=== PATIENT | male | born 1965 | race Asian ===

== ENCOUNTER 2024-11-21 18:10 | Emergency (ER) | payer MEDICAID ==
[~2024-11-21] VITALS: Ht 180.3 cm; Wt 82.0 kg
--- NOTE | 2024-11-21 19:18 | DVH ---
CT HEAD WITHOUT CONTRAST INDICATION: Vertigo COMPARISON: None TECHNIQUE: CT of the head without intravenous contrast. RADIATION DOSE: CTDIvol: mGy, DLP: mGy*cm FINDINGS: There is no evidence of intracranial hemorrhage, infarct, extra-axial collection, mass effect, midli ne shift, herniation or hydrocephalus. The ventricles, sulci and cisterns are normal. The vasquez-white differentiation is normal. Visualized paranasal sinuses and mastoid air cells are clear. Soft tissues and osseous structures are unremarkable. IMPRESSION: No intracranial abnormality.
--- NOTE | 2024-11-21 19:25 | ED.PDOC ---
History of Present Illness HPI Comments 59 y/o M, with a history of AFIB, DM, HTN, resolved HBV infection, 2x OK, and PTCA, presents with spouse for c/o "vertigo" and bilateral ear "heaviness" sensation, today. Patient endorses on onset of symptoms at 0500, this morning. He reports dizziness being a "room-spinning" sensation that begins whenever he stands or walks. Patient admits to having symptoms before in the past. Prior to ED arrival, he also reports on taking a Meclizine, which improved his "room- spinning" sensation, moderately. He denies having any chest pain, tinnitus, cough, congestion, shortness of breath, headache, congestion, nausea, vomiting, speech or vision problems, or further associated symptoms or modifiers. Chief Complaint: Dizziness Time Seen by MD: 18:45 Primary Care Provider: CHET Reviewed Notes: Nurses Notes, Medications, Allergies Allergies: Coded Allergies: NO KNOWN ALLERGIES (Unverified , 06/04/16) Information Source: Patient Mode of Arrival: Ambulatory Severity: Moderate Timing: Hours Duration: Since onset Prehospital treatment: None Review of Systems: REVIEW OF SYSTEMS: No fever, no chills, or fatigue HEENT: Bilateral ear "heaviness" sensation. No sore throat, no earache, no chester estion, no neck pain. Cardiac: No chest pain. No palpitations. Lungs: No shortness of breath, no cough. GI: No nausea, no vomiting, no diarrhea, no constipation, no abdominal pain : No dysuria, frequency, or urgency. No hematuria. Musculoskeletal: No joint pain , no joint swelling, no extremity edema. Skin: No rash, no itching. Neuro: Dizziness. No headache, no weakness Vital Signs Vital Signs Date Time Temp Pulse Resp B/P (MAP) Pulse Ox O2 Delivery O2 Flow Rate FiO2 11/21/24 19:25 76 11/21/24 18:10 98.4 16 123/80 (94) 95 98.4 Physical Exam General: Awake, alert and oriented. No acute distress. Skin: Skin in warm, dry and intact. Appropriate color for ethnicity. HEENT: Nystagmus positive. The head is normocephalic and atraumatic. Conjunctivae are clear without exudates or hemorrhage. Sclera is non-icteric. Eyelids are normal in appearance without swelling or lesions. Oral mucosa is pink and moist Neck: The neck is supple with normal range of motion. No JVD. Cardiac: Heart rate and rhythm are normal. No murmurs, gallops, or rubs are auscultated. Respiratory: No signs of respiratory distress. Lung sounds are clear in all lobes bilaterally without rales, rhonchi, or wheezes. Abdominal: Abdomen is soft, non-tender without distention. Bowel sounds are present and normoactive in all four quadrants. Extremities: Upper and lower extremities are atraumatic in appearance without deformity or edema. Neurological: The patient is awake, alert and oriented to person, place, and time with normal speech. Speech is clear. There is no facial asymmetry. Psychiatric: Appropriate mood and affect. Good judgement and insight. Past Medical History PAST MEDICAL HISTORY: AFIB, DM, HTN, Liver (Hepatitis B, resolved), [place] (2x) Surgical History: PTCA Family History Family History: Unknown Social History Smoker: Non-Smoker Alcohol: Denies ETOH Use Drugs: Denies Drug Use Lives In: Home Was a procedure done? Was a procedure done?: No EKG EKG : Pulse Rate (adult): 76 [place]: Normal Cardiac Rhythm: NSR Block: None Hypertrophy: None ST: Old, Inf, Infarct Comments No STEMI Differential Dx Considerations may include: Differential diagnoses considered include but are not limited to vertigo, cardiac structural disease, arrhythmia, acute coronary syndrome, orthostasis, pulmonary embolism, dissection, seizure, basilar stroke, other. X-Ray, Labs, Meds, VS Vital Signs Date Time Temp Pulse Resp B/P (MAP) Pulse Ox O2 Delivery O2 Flow Rate FiO2 11/21/24 19:25 76 11/21/24 18:27 76 11/21/24 18:10 98.4 81 16 123/80 (94) 95 98.4 Lab Test 11/21/24 20:05 11/21/24 19:00 Range/Units White Blood Count 7.7 4.4-10.8 10^3/uL Red Blood Count 5.90 4.5-5.90 10^6/uL Hemoglobin 16.4 13.5-17.5 g/dL Hematocrit 48.9 41.0-53.0 % Mean Corpuscular Volume 82.8 80.0-100.0 fL Mean Corpuscular Hemoglobin 27.8 L 28.0-32.0 pg Mean Corpuscular Hemoglobin Concent 33.6 32.0-36.0 g/dL Red Cell Distribution Width 16.4 H 11.8-14.3 % Platelet Count 241 140-450 10^3/uL Mean Platelet Volume 7.9 6.9-10.8 fL Neutrophils (%) (Auto) 59.9 37.0-80.0 % Lymphocytes (%) (Auto) 29.0 10.0-50.0 % Monocytes (%) (Auto) 9.2 0.0-12.0 % Eosinophils (%) (Auto) 1.0 0.0-7.0 % Basophils (%) (Auto) 0.9 0.0-2.0 % Neutrophils # (Auto) 4.6 1.6-8.6 10 ^3/uL Lymphocytes # (Auto) 2.2 0.4-5.4 10 ^3/uL Monocytes # (Auto) 0.7 0-1.3 10 ^3/uL Eosinophils # (Auto) 0.1 0-0.8 10 ^3/uL Basophils # (Auto) 0.1 0-0.2 10 ^3/uL Nucleated Red Blood Cells 0.2 % Sodium Level 137 136-145 mmol/L Potassium Level 4.4 3.5-5.1 mmol/L Chloride Level 106 98-107 mmol/L Carbon Dioxide Level 18 L 20-31 mmol/L Anion Gap 13 5-15 Blood Urea Nitrogen 17 9-23 mg/dL Creatinine 0.92 0.700-1.30 mg/dL Glomerular Filtration Rate Calc 96 >90 mL/min BUN/Creatinine Ratio 18.5 10.0-20.0 Serum Glucose 174 H 74-106 mg/dL Calcium Level 9.8 8.7-10.4 mg/dL Magnesium Level 2.0 1.6-2.6 mg/dL Total Bilirubin 1.1 H 0.2-1.0 mg/dL Aspartate Amino Transferase (AST) 29 13-40 U/L Alanine Aminotransferase (ALT) 35 7-40 U/L Alkaline Phosphatase 79 46-116 U/L Troponin I High Sensitivity 6 </=54 ng/L Total Protein 7.5 5.7-8.2 g/dL Albumin 4.7 3.2-4.8 g/dL [facility] [address] [facility] [address] Ph: [phone] DIAGNOSTIC IMAGING Diagnostic Imaging Report : [id number] Signed PATIENT: ANALY OLIVEROS ACCT: [id number] UNIT: [id number] : 1965 LOC: ER ROOM / BED: / AGE / SEX: 59 / M ADM STATUS: REG ER SERVICE 1846 ORDERING PHYSICIAN: MACY HICKMAN MD PROCEDURE(s): HWOCT - HEAD WITHOUT CONTRAST REASON: Vertigo ORDER NUMBER(s): [id number], ACCESSION NUMBER(s): [id number] CT HEAD WITHOUT CONTRAST INDICATION: Vertigo COMPARISON: None TECHNIQUE: CT of the head without intravenous contrast. RADIATION DOSE: CTDIvol: mGy, DLP: mGy*cm FINDINGS: There is no evidence of intracranial hemorrhage, infarct, extra-axial collection, mass effect, midline shift, herniation or hydrocephalus. The munira tricles, sulci and cisterns are normal. The vasquez-white differentiation is normal. Visualized paranasal sinuses and mastoid air cells are clear. Soft tissues and osseous structures are unremarkable. IMPRESSION: No intracranial abnormality. ATED BY: FABIEN RAMIREZ MD DICTATED DATE/TIME: 11/21/241915 SIGNED BY: FABIEN RAMIREZ MD SIGNED DATE/TIME: 11/21/241915 CC: Time of 1ST Reevaluation: 19:15 Reevaluation 1ST: Unchanged Patient Education/Counseling: Diagnosis, Treatment Family Education/Counseling: Diagnosis, Treatment Departure 1 Departure Time of Disposition: 20:46 Impression: Primary Impression: Vertigo Disposition: 01 HOME / SELF CARE / HOMELESS Condition: Good Additional Instructions: ED DISCHARGE INSTRUCTIONS Instructions: Please read all instructions provided in this packet carefully. Although you have been discharged from the Emergency Department, this does not mean that you have a "clean bill of health". No definitive diagnosis for your symptoms has been made today. It is possible that you are in the process of developing a serious illness. This is why you must return to the ED without fail if any new or worsening symptoms (especially if your symptoms include numbness, difficulty speaking, weakness, vomiting, chest pain, trouble breathing, abdominal pain, fever, headache, confusion, trouble seeing, or trouble walking) It is also very important that you see a primary care doctor within the next 3-5 days to follow up. If you are unable to get an appointment, return to the ED for re-evaluation. Vertigo: Care Instructions Overview Vertigo is the feeling that you or your surroundings are moving when there is no actual movement. It is often described as a feeling of spinning, whirling, falling, or tilting. Vertigo may make you vomit or feel nauseated. You may have trouble standing or walking and may lose your balance. Vertigo is often related to an inner ear problem, but it can have other more serious causes. If vertigo continues, you may need more tests to find its cause. Follow-up care is a gerardo part of your treatment and safety. Be sure to make and go to all appointments, and call your doctor if you are having problems. It's also a good idea to know your test results and keep a list of the medicines you take. How can you care for yourself at home? Do not lie flat on your back. Prop yourself up slightly. This may reduce the spinning feeling. Keep your eyes open. Move slowly to decrease your chance of falling. If your doctor recommends medicine, take it exactly as directed. Do not drive while you are having vertigo. Certain exercises, called Rosenberg-Daroff exercises, can help decrease vertigo. To do Rosenberg-Daroff exercises: Sit on the edge of a bed or sofa and quickly lie down on the side that causes the worst vertigo. Lie on your side with your ear down. Stay in this position for at least 30 seconds or until the vertigo goes away. Sit up. If this causes vertigo, wait for it to stop. Repeat the procedure on the other side. Repeat this 10 times. Do these exercises 2 times a day until the vertigo is gone. When should you call for help? Call 911 anytime you think you may need emergency care. For example, call if: You passed out (lost consciousness). You have sudden dizziness that doesn't get better. You have dizziness along with symptoms of a heart attack. These may include: Chest pain or pressure, or a strange feeling in the chest. Sweating. Shortness of breath. Nausea or vomiting. Pain, pressure, or a strange feeling in the back, neck, jaw, or upper belly or in one or both shoulders or arms. Lightheadedness or sudden weakness. A fast or irregular heartbeat. You have symptoms of a stroke. These may include: Sudden numbness, tingling, weakness, or loss of movement in your face, arm, or leg, especially on only one side of your body. Sudden vision changes. Sudden trouble speaking. Sudden confusion or trouble understanding simple statements. Sudden problems with walking or balance. A sudden, severe headache that is different from past headaches. Call your doctor now or seek immediate medical care if: Vertigo occurs with a fever, a headache, or ringing in your ears. You have new or increased nausea and vomiting. Your vertigo gets worse or happens more often. Watch closely for changes in your health, and be sure to contact your doctor if: You do not get better as expected. Credits for Vertigo: Care Instructions Current as of: May 16, 2024 Author: [employer] Staff Clinical Review Board All [employer] education is reviewed by a team that includes physicians, nurses, advanced practitioners, registered dieticians, and other healthcare professionals. Comments 59-year-old male with vertigo symptoms. No neuro deficit on examination. No associated vomiting. CT head negative for acute process. Do not suspect CVA. Patient is well-appearing, nontoxic. Patient's symptoms improved during the ED observation. Vital signs stable. Lab and imaging results reviewed and are not urgently actionable. Patient is felt stable for discharge home. Patient advised to follow up with primary care provider promptly and return to the emergency department with any new, worsening or concerning symptoms. Extensive evaluation was performed in attempt to identify or rule out: (See differential diagnosis section) The following tests were ordered, and results were reviewed by me and discussed with patient: (See diagnostic results section) The following test were independently interpreted by me: EKG I reviewed and agreed with the following test results read by other providers: CT head I reviewed the following notes from the pt's past medical encounters: N/A Additional information was gathered from interviewing the following independent historians: at bedside Discussion of management or test interpretation with external physician/other qualified health animal care provider: N/A Decision regarding hospitalization or escalation of hospital level of care: Risks and benefits of admission for further treatment of patient's condition was considered however due to patient's stable condition patient will be discharged to follow up closely or return to care for worsening of condition or inability to follow up. Critical Care Note Critical Care Time?: No Stability Stability form required: No Heart Score Heart Score: Heart Score Response (Comments) Value History N/A 0 EKG N/A 0 Age N/A 0 Risk Factors N/A 0 Troponin N/A 0 Total 0 I personally scribed for MACY HICKMAN MD ([email or web address]) on 11/21/24 at 19:25. Electronically submitted by Mike Almazan ([email or web address]). I personally scribed for MACY HICKMAN MD ([email or web address]) on 11/21/24 at 19:26. Electronically submitted by Mike Almazan ([email or web address]). I personally scribed for MACY HICKMAN MD ([email or web address]) on 11/21/24 at 20:08. Electronically submitted by Mike Almazan ([email or web address]). MACY HICKMAN MD November 21, 2024 19:25
[2024-11-21 20:17] LABS: Alanine Aminotransferase 35 U/L (7-40); Albumin 4.7 g/dL (3.2-4.8); Alkaline Phosphatase 79 U/L (46-116); Anion Gap 13 (5-15); Aspartate Aminotransferase 29 U/L (13-40); BUN/Creatinine Ratio 18.5 (10.0-20.0); Bilirubin, Total 1.1 mg/dL (0.2-1.0); Blood Urea Nitrogen 17 mg/dL (9-23); Calcium 9.8 mg/dL (8.7-10.4); Chloride 106 mmol/L (98-107); Potassium 4.4 mmol/L (3.5-5.1); Sodium 137 mmol/L (136-145); Total Protein 7.5 g/dL (5.7-8.2)
[2024-11-21 20:25] LABS: Carbon Dioxide 18 mmol/L (20-31)
[2024-11-21 20:26] LABS: Glucose 174 mg/dL (74-106)
[2024-11-21 20:26] LABS: Basophils # (auto) 0.1 10 ^3/uL (0-0.2); Basophils % (auto) 0.9 % (0.0-2.0); Eosinophils # (auto) 0.1 10 ^3/uL (0-0.8); Hematocrit 48.9 % (41.0-53.0); Hemoglobin 16.4 g/dL (13.5-17.5); Lymphocytes # (auto) 2.2 10 ^3/uL (0.4-5.4); Mean Corpuscular Hemoglobin 27.8 pg (28.0-32.0); Mean Corpuscular Hgb Conc. 33.6 g/dL (32.0-36.0); Mean Corpuscular Volume 82.8 fL (80.0-100.0); Monocytes # (auto) 0.7 10 ^3/uL (0-1.3); Monocytes % (auto) 9.2 % (0.0-12.0); Neutrophils # (auto) 4.6 10 ^3/uL (1.6-8.6); Neutrophils % (auto) 59.9 % (37.0-80.0); Nucleated Red Blood Cells % 0.2 %; Platelet Count (auto) 241 10^3/uL (140-450); Red Cell Distribution Width 16.4 % (11.8-14.3); White Blood Cell 7.7 10^3/uL (4.4-10.8)
[2024-11-21 21:20] VITALS: BP 123/80; PULSE 78; RESP 16; TEMP 98.4; O2SAT 97
[2024-11-21] MEDS: MECLIZINE HCL 25 MG TAB PO ONE (21:51)
--- NOTE | 2024-11-24 13:45 | ECG ---
[facility] Test Date: 2024-11-21 Test Time: 18:27:29 Pat Name: ANALY SILVEIRAQVI Department: ER Room: Gender: M Tapper Helper: DR APPLE: 1965 Requested By: MACY HICKMAN Order Number: [id number] Reading MD: Kanu Osborn Measurements Intervals Sullivan Rate: 76 P: 70 ME: 156 QRS: 70 QRSD: 100 T: -38 QT: 411 QTc: 463 Interpretive Statements Sinus rhythm Inferior infarct, age indeterminate Baseline wander in lead(s) V2 Electronically Signed On 11-25-2024 20:37:25 PDT by Kanu Osborn Please click the below link to view image of tracing.
== END 2024-11-21 22:00 | disposition home or self-care (01) ==
LOC: ER 18:10
DX: R42 Dizziness and giddiness (principal); E11.9 Type 2 diabetes mellitus without complications; I10 Essential (primary) hypertension; I48.91 Unspecified atrial fibrillation
CPT/HCPCS: 36415; 70450; 80053; 82947; 83735; 84484; 93005; 99284; J8597

== ENCOUNTER 2025-04-30 20:55 | Emergency (ER) | payer MEDICAID ==
[~2025-04-30] VITALS: Ht 177.8 cm; Wt 90.7 kg
[2025-04-30] MEDS: HYDROcodone-ACET 10/325MG TAB PO ONE (21:45)
[2025-04-30 21:48] LABS: Hematocrit 42.7 % (41.0-53.0); Hemoglobin 14.6 g/dL (13.5-17.5); Mean Corpuscular Hemoglobin 29.1 pg (28.0-32.0); Mean Corpuscular Volume 85.2 fL (80.0-100.0); Nucleated Red Blood Cells % 0.1 %
[2025-04-30 22:13] LABS: Alanine Aminotransferase 30 U/L (7-40); Albumin 4.6 g/dL (3.2-4.8); Alkaline Phosphatase 48 U/L (46-116); Anion Gap 11 (5-15); BUN/Creatinine Ratio 13.0 (10.0-20.0); Blood Urea Nitrogen 14 mg/dL (9-23); Calcium 9.3 mg/dL (8.7-10.4); Carbon Dioxide 25 mmol/L (20-31); Chloride 104 mmol/L (98-107); Potassium 4.1 mmol/L (3.5-5.1); Sodium 140 mmol/L (136-145); Total Protein 7.6 g/dL (5.7-8.2)
[2025-04-30 22:14] LABS: Bilirubin, Total 0.9 mg/dL (0.2-1.0)
[2025-04-30 22:15] LABS: INR 1.14 (0.9-1.15); Partial Thromboplastin Time 24.2 SEC (24.5-34.5); Prothrombin Time 11.9 sec (9.3-11.8)
[2025-04-30 22:18] LABS: Glucose 125 mg/dL (74-106)
[2025-04-30 22:28] VITALS: PULSE 62; RESP 20; O2SAT 97
--- NOTE | 2025-04-30 23:01 | DVH ---
INDICATION: Chest pain TECHNIQUE: Frontal view of the chest. COMPARISON: XR CHEST 1 VIEW on DOS: 01/25/24, XR CHEST 1 VIEW on DOS: 01/23/24, CT ANGIO CHEST - PULMONAR Y on DOS: 11/18/23, XR CHEST 1 VIEW on DOS: 11/17/23, XR CHEST 1 VIEW on DOS: 03/21/23 FINDINGS: . The heart and mediastinal contours are grossly unremarkable. There is no evidence of pleural disea se. The lungs are clear. The bony structures of the chest are intact without fracture. IMPRESSION: 1. No evidence of acute disease.
--- NOTE | 2025-05-01 00:44 | ED.PDOC ---
HPI Comments Patient is a pleasant 59-year-old male who arrives the ED today with family via EMS with complaints of left-sided stabbing chest pain that radiates towards his jaw and shoulder for the past 2 hours. Patient has a history of cardiac concerns in his followed by Dr. Forman. Patient states the symptoms came on and has been relatively unrelenting. Patient denies any fever nausea or vomiting. Vital signs were stable at arrival. Chief Complaint: Chest Pain Time Seen by MD: 21:13 Primary Care Provider: CHET Reviewed Notes: Nurses Notes, Car Salesman Notes Allergies: Coded Allergies: NO KNOWN ALLERGIES (Unverified , 06/04/16) Information Source: Patient, Relative, Emergency Med Personnel Mode of Arrival: EMS Severity: Moderate Timing: Hours Duration: Since onset Prehospital treatment: 12 Lead EKG Location: Chest (L), Substernal Quality: Sharp, Stabbing Onset: At Rest Cardiac Risk Factors: Other (History of cardiac concerns) History of: Similar pain in past Past Medical History PAST MEDICAL HISTORY: AFIB, DM, HTN, Liver, [place] Surgical History: PTCA Family History Family History: Unknown Social History Smoker: Non-Smoker Alcohol: Denies ETOH Use Drugs: Denies Drug Use Lives In: Home Constitutional: denies: chills, diaphoresis, fatigue, fever, malaise, sweats, weakness, others EENTM: denies: blurred vision, double vision, ear bleeding, ear discharge, ear drainage, ear pain, ear ringing, eye pain, eye redness, hearing loss, mouth pain, mouth swelling, nasal discharge, nose bleeding, nose congestion, nose pain, photophobia, tearing, throat pain, throat swelling, voice changes, others Respiratory: denies: cough, hemoptysis, orthopnea, SOB at rest, shortness of breath, SOB with excertion, stridor, wheezing, others Cardiovascular: reports: chest pain; denies: dizzy spells, diaphoresis, Dyspnea on exertion, edema, irregular heart beat, left arm pain, lightheadedness, palpitations, PND, syncope, others Gastrointestinal: denies: abdomen distended, abdominal pain, blood streaked bowels, constipated, diarrhea, dysphagia, difficulty swallowing, hematemesis, melena, nausea, poor appetite, poor fluid intake, rectal bleeding, rectal pain, vomiting, others Genitourinary: denies: burning, dysuria, flank pain, frequency, hematuria, incontinence, penile discharge, penile sore, pain, testicle pain, testicle swelling, urgency, others Neurological: denies: dizziness, fainting, headache, left sided numbness, left sided weakness, numbness, paresthesia, pre-existing deficit, right sided numbness, right sided weakness, seizure, speech problems, tingling, tremors, weakness, others Musculoskeletal: denies: back pain, gout, joint pain, joint swelling, muscle pain, muscle stiffness, neck pain, others Integumetry: denies: bruises, change in color, change in hair/nails, dryness, laceration, lesions, lumps, rash, wounds, others Allergic/Immunocompromised: denies: Difficulty Healing, Frequent Infections, Hives, Itching, others Hematologic/Lymphatic: denies: anemia, blood clots, easy bleeding, easy bruising, swollen glands, others Endocrine: denies: excessive hunger, excessive sweating, excessive thirst, excessive urination, flushing, intolerance to cold, intolerance to heat, unexplained weight gain, unexplained weight loss, others Psychiatric: denies: anxiety, bipolar disorder, depression, hopeless, panic disorder, schizophrenia, sleepless, suicidal, others Physical Exam General Appearance: Moderate Distress (Moderate distress due to left-sided stabbing chest pain concerns.), Normal HEENT: Normal ENT Inspection, Pharynx Normal, TMs Normal Neck: Full Range of Motion, Non-Tender, Normal, Normal Inspection Respiratory: Chest Non-Tender, Lungs Clear, No Accessory Muscle Use, No Respiratory Distress, Normal Breath Sounds, Other (Unremarkable auscultation bilateral lung hebert.) Cardiovascular: No Edema, No JVD, No Murmur, No Gallop, Normal Peripheral Pulses, Regular Rate/Rhythm, Other (Unremarkable cardiac evaluation.) Breast Exam: Deferred Gastrointestinal: No Organomegaly, Non Tender, No Pulsatile Mass, Normal Bowel Sounds, Soft Genitalia: Deferred Pelvic: Deferred Rectal: Deferred Extremities: No calf tenderness, Normal capillary refill, Normal inspection, No pedal edema Neurologic: Alert Cerebellar Function: NOT DONE Reflexes: NOT DONE Skin: Dry, Normal Color, Warm Lymphatic: No Adenopathy Was a procedure done? Was a procedure done?: No CP Differential Dx Differential Diagnosis: A-fib, A-Flutter, Angina, Anxiety / Panic Attack, AV Block 1st Degree, [place] Differential Diagnosis: CHF Differential Diagnosis: Angina, Chest Wall Pain X-Ray, Labs, Meds, VS Vital Signs Date Time Temp Pulse Resp B/P (MAP) Pulse Ox O2 Delivery O2 Flow Rate FiO2 04/30/25 22:28 98.1 62 18 131/87 (102) 96 98.1 04/30/25 22:28 62 20 97 Room Air* 0 21 04/30/25 21:17 98.0 70 20 104/70 95 98.0 Lab Test 04/30/25 22:30 04/30/25 21:27 Range/Units Troponin I High Sensitivity 6 4 </=54 ng/L White Blood Count 7.1 4.4-10.8 10^3/uL Red Blood Count 5.01 4.5-5.90 10^6/uL Hemoglobin 14.6 13.5-17.5 g/dL Hematocrit 42.7 41.0-53.0 % Mean Corpuscular Volume 85.2 80.0-100.0 fL Mean Corpuscular Hemoglobin 29.1 28.0-32.0 pg Mean Corpuscular Hemoglobin Concent 34.1 32.0-36.0 g/dL Red Cell Distribution Width 16.2 H 11.8-14.3 % Platelet Count 198 140-450 10^3/uL Mean Platelet Volume 8.9 6.9-10.8 fL Neutrophils (%) (Auto) 55.1 37.0-80.0 % Lymphocytes (%) (Auto) 32.1 10.0-50.0 % Monocytes (%) (Auto) 10.5 0.0-12.0 % Eosinophils (%) (Auto) 1.3 0.0-7.0 % Basophils (%) (Auto) 1.0 0.0-2.0 % Neutrophils # (Auto) 3.9 1.6-8.6 10 ^3/uL Lymphocytes # (Auto) 2.3 0.4-5.4 10 ^3/uL Monocytes # (Auto) 0.8 0-1.3 10 ^3/uL Eosinophils # (Auto) 0.1 0-0.8 10 ^3/uL Basophils # (Auto) 0.1 0-0.2 10 ^3/uL Nucleated Red Blood Cells 0.1 % Prothrombin Time 11.9 H 9.3-11.8 sec Prothrombin Time INR 1.14 0.9-1.15 Activated Partial Thromboplast Time 24.2 L 24.5-34.5 SEC Sodium Level 140 136-145 mmol/L Potassium Level 4.1 3.5-5.1 mmol/L Chloride Level 104 98-107 mmol/L Carbon Dioxide Level 25 20-31 mmol/L Anion Gap 11 5-15 Blood Urea Nitrogen 14 9-23 mg/dL Creatinine 1.08 0.700-1.30 mg/dL Glomerular Filtration Rate Calc 80 >90 mL/min BUN/Creatinine Ratio 13.0 10.0-20.0 Serum Glucose 125 H 74-106 mg/dL Calcium Level 9.3 8.7-10.4 mg/dL Total Bilirubin 0.9 0.2-1.0 mg/dL Aspartate Amino Transferase (AST) 38 13-40 U/L Alanine Aminotransferase (ALT) 30 7-40 U/L Alkaline Phosphatase 48 46-116 U/L B-Type Natriuretic Peptide 41.62 0-100 pg/mL Total Protein 7.6 5.7-8.2 g/dL Albumin 4.6 3.2-4.8 g/dL Current Medications Medications (Trade) Dose Ordered Sig/Anibal Route Start Time Stop Time Status Last Admin Acetaminophen/ Hydrocodone Bitart ([place] 10/325MG Tab) 1 tab ONCE ONCE PO 04/30/25 21:45 04/30/25 21:46 DC 04/30/25 21:45 X-Ray, Labs, Meds, VS Comment All studies performed the ED were evaluated by me personally. Serum studies were unremarkable for any acute systemic concerns including unremarkable cardiac markers. EKG revealed a sinus rhythm with a rate of 62. Age indeterminate inferior infarct was noted. [place] interval of 163 and QT interval of 457. Chest x-ray was unremarkable for any acute pulmonary concerns or consolidation. Spoke with the patient about the unremarkable findings at our facility today. Patient states he will go home and follow up with Dr. Forman on Friday an outpatient basis. Time of 1ST Reevaluation: 00:43 Reevaluation 1ST: Improved Consultation: PCP, Cardiology Patient Education/Counseling: Diagnosis, Treatment Family Education/Counseling: Diagnosis, Treatment SEPSIS Sepsis Screen Date sepsis recognized/suspect: Apr 30, 2025 Time Sepsis recognized/suspect: 2230 Recent Procedure: No On Antibiotic Therapy: No Respiratory Rate >20: No Heart Rate >90: No Temp<36 C (96.8 F) or >38.3 C: No SBP <90 or MAP <65 mmHG: No New Acute Mental Status Change: No Is the patient on CPAP, BIPAP,: No Physician Orders Chest Portable (04/30/25 21:40) Heplock Iv (04/30/25 21:40) White Hat Hacker (04/30/25 21:40) Urinalysis (04/30/25 21:40) Electrocardigram (04/30/25 21:40) Troponin-I Hs (05/01/25 00:40) Hydrocodone-Acet 5/325mg Tab ([place] 5/32 (05/01/25 00:45) Vital Signs Date Time Temp Pulse Resp B/P (MAP) Pulse Ox O2 Delivery O2 Flow Rate FiO2 04/30/25 22:28 98.1 62 18 131/87 (102) 96 98.1 04/30/25 22:28 62 20 97 Room Air* 0 21 04/30/25 21:17 98.0 70 20 104/70 95 98.0 Laboratory Tests Test 04/30/25 21:27 White Blood Count 7.1 10^3/uL (4.4-10.8) Medications Medications Dose Ordered Sig/Anibal Route Start Time Stop Time Status Last Admin Dose Admin Acetaminophen/ Hydrocodone Bitart 1 tab ONCE ONCE PO 04/30/25 21:45 04/30/25 21:46 DC 04/30/25 21:45 Departure 1 Departure Time of Disposition: 00:44 Impression: Primary Impression: Chest pain Disposition: HOME / SELF CARE / HOMELESS Condition: Stable Additional Instructions: Advised patient to follow up with Dr. Forman on Friday for continued evaluation. Discharged With: Self, Relative Critical Care Note Critical Care Time?: No Stability Stability form required: No Heart Score Heart Score: Heart Score Response (Comments) Value History Slightly Suspicious 0 EKG Normal 0 Age 45-64 1 Risk Factors 1 or 2 risk factors 1 Troponin Normal limit 0 Total 2 KIZZY CONWAY PAC May 01, 2025 00:44
[2025-05-01] MEDS ORDERED: HYDROcodone-ACET 5/325MG TAB PO ONE (00:45)
[2025-05-01 00:48] VITALS: BP 127/67; PULSE 64; RESP 20; TEMP 98.1; O2SAT 98
--- NOTE | 2025-05-01 07:10 | ECG ---
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
--- NOTE | 2025-05-04 09:48 | ECG ---
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
--- NOTE | 2025-05-05 09:18 | ECG ---
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
== END 2025-05-01 00:46 | disposition home or self-care (01) ==
LOC: EDBD 20:55 → ER 20:55
DX: R07.89 Other chest pain (principal); R68.84 Jaw pain; M25.512 Pain in left shoulder; I10 Essential (primary) hypertension; E11.9 Type 2 diabetes mellitus without complications; I25.2 Old myocardial infarction; I48.91 Unspecified atrial fibrillation
CPT/HCPCS: 36415; 71045; 80053; 83880; 84484; 85025; 85610; 85730; 93005